=== PATIENT | female | born 2005 | race African-American/Black ===

== ENCOUNTER 2023-01-14 11:17 | Emergency (ER) | payer MEDICAID, OTHER | END 2023-01-14 12:32 | disposition home or self-care (01) | LOC: JP.ED 11:17 | DX: J02.8 Acute pharyngitis due to other specified organisms (principal); B97.89 Other viral agents as the cause of diseases classified elsewhere; Z86.16 Personal history of COVID-19; Z88.0 Allergy status to penicillin; Z88.8 Allergy status to other drugs, medicaments and biological substances; Z88.2 Allergy status to sulfonamides; Z91.013 Allergy to seafood; Z91.018 Allergy to other foods | CPT/HCPCS: 87651-QW; 99283 ==